=== PATIENT | male | born 1940 | race African-American/Black ===

== ENCOUNTER 2018-08-22 00:45 | Inpatient (IN) | payer MEDICARE, MEDICAID ==
[~2018-08-22] VITALS: Ht 175.3 cm; Wt 679.9 kg
[2018-08-22] VITALS (7 sets, daily range): BP systolic 104–119; BP diastolic 67–76
[~2018-08-22 00:45] MED LIST: AMLO10TA4 PO; ASPI-1159 PO; BRIM15DR2 OP; DICL75TA5 PO; DORZ10DR9 OP; HYDR-3513 PO; LATA2.5D2 EACHEYE; MOTRIN
[2018-08-22] MEDS ORDERED: IPRATROPIUM/ALBUTEROL 0.5-3(2.5)MG/3ML NEB INH PRN (01:45)
[2018-08-22] MEDS ORDERED: DOCUSATE SODIUM 100MG CAPSULE PO PRN (01:45)
[2018-08-22] MEDS ORDERED: GUAIFENESIN 200MG/10ML SUGAR FREE UDC PO PRN (01:45)
[2018-08-22] MEDS ORDERED: HYDROCODONE/ACETAMINOPHEN 5/325MG TABLET PO PRN (01:45)
[2018-08-22] MEDS ORDERED: ONDANSETRON HCL 4MG/2ML INJ IV PRN (01:45)
[2018-08-22] MEDS ORDERED: MAGNESIUM/ALUMINUM HYDROXIDE/SIMETHICONE 30ML UDC PO PRN (01:45)
[2018-08-22] MEDS ORDERED: ACETAMINOPHEN 325MG TABLET PO PRN (01:45)
[2018-08-22] MEDS ORDERED: CLONIDINE 0.1MG TABLET PO PRN (01:45)
[2018-08-22] MEDS: SODIUM CHLORIDE 0.9% 1,000 ML IV SCH ×2 (03:20→17:04)
[2018-08-22] MEDS ORDERED: CLON0.1T PO (06:09)
[2018-08-22] MEDS ORDERED: MOM PO (06:09)
[2018-08-22] MEDS ORDERED: MULT-1146 MT (06:09)
[2018-08-22] MEDS ORDERED: FAMO-135 PO (06:09)
[2018-08-22] MEDS ORDERED: TAMS-11 MT (06:09)
[2018-08-22] MEDS: ASPIRIN 81MG EC TABLET PO SCH (09:57)
[2018-08-22 12:00] LABS: BASOPHILS % 0.5 % (0.0-2.0); EOSINOPHILS % 2.8 % (0.0-5.0); HEMOGLOBIN. 12.7 g/dL (14.0-18.0); LYMPHOCYTES % 38.5 % (20.0-50.0); MEAN CORPUSCULAR HEMOGLOBIN 30.3 pg (28.0-32.0); MEAN CORPUSCULAR VOLUME 90.6 fL (80.0-94.0); NEUTROPHILS % 47.2 % (40.0-76.0); RED BLOOD CELL COUNT 4.19 mill/uL (4.7-6.1); RED CELL DISTRIBUTION WIDTH 14.6 % (11.6-14.6)
[2018-08-22 12:03] LABS: CHLORIDE 103 mEq/L (98-107)
[2018-08-22] MEDS: AMLODIPINE 10MG TABLET PO SCH (12:18)
[2018-08-22 12:46] LABS: MEAN PLATELET VOLUME 7.3 fl (7.4-10.4); PLATELET 195 x1000/uL (130-400)
[2018-08-22 14:57] LABS: CLARITY URINE CLOUDY (CLEAR); COLOR URINE YELLOW (YELLOW); KETONES URINE NEGATIVE (NEGATIVE); LEUKOCYTE ESTERASE URINE 3+ (NEGATIVE); NITRITE URINE POSITIVE (NEGATIVE); OCCULT BLOOD URINE TRACE (NEGATIVE); PROTEIN URINE NEGATIVE (NEGATIVE); SPECIFIC GRAVITY URINE 1.002 (1.005-1.030); UROBILINOGEN URINE 0.2 E.U./dL (0.2-1.0)
[2018-08-22] MEDS: ENOXAPARIN 40MG/0.4ML SYR SUBCUT SCH (17:03)
[2018-08-23] VITALS: BP 103/67
[2018-08-23 04:00] VITALS: BP 125/84
[2018-08-23 08:00] VITALS: BP 139/86
[2018-08-23] MEDS: AMLODIPINE 10MG TABLET PO SCH (09:00)
[2018-08-23] MEDS: ENOXAPARIN 40MG/0.4ML SYR SUBCUT SCH (09:00)
[2018-08-23] MEDS: ASPIRIN 81MG EC TABLET PO SCH (09:00)
[2018-08-23 12:00] VITALS: BP 105/61
[2018-08-23] MEDS: LEVOFLOXACIN 500MG PREMIX 100 ML IV SCH (14:03)
[2018-08-23 16:00] VITALS: BP 102/65
[2018-08-23] MEDS: SODIUM CHLORIDE 0.9% 1,000 ML IV SCH ×2 (17:43→17:56)
[2018-08-23 20:00] VITALS: BP 102/70
[2018-08-24] VITALS: BP 120/77
[2018-08-24 04:00] VITALS: BP 114/77
[2018-08-24] MEDS: SODIUM CHLORIDE 0.9% 1,000 ML IV SCH ×2 (06:03→20:23)
[2018-08-24 08:00] VITALS: BP 121/77
[2018-08-24] MEDS: AMLODIPINE 10MG TABLET PO SCH (08:29)
[2018-08-24] MEDS: ENOXAPARIN 40MG/0.4ML SYR SUBCUT SCH (08:29)
[2018-08-24] MEDS: ASPIRIN 81MG EC TABLET PO SCH (08:29)
[2018-08-24] MEDS: LEVOFLOXACIN 500MG PREMIX 100 ML IV SCH (10:18)
[2018-08-24 12:00] VITALS: BP 122/72
[2018-08-24 20:00] VITALS: BP 113/76
[2018-08-25] VITALS: BP 108/71
[2018-08-25 04:00] VITALS: BP 117/78
[2018-08-25 08:00] VITALS: BP 106/73
[2018-08-25] MEDS: AMLODIPINE 10MG TABLET PO SCH (08:31)
[2018-08-25] MEDS: SODIUM CHLORIDE 0.9% 1,000 ML IV SCH (08:33)
[2018-08-25] MEDS: ASPIRIN 81MG EC TABLET PO SCH (08:33)
[2018-08-25] MEDS: ENOXAPARIN 40MG/0.4ML SYR SUBCUT SCH (09:20)
[2018-08-25] MEDS: LEVOFLOXACIN 500MG PREMIX 100 ML IV SCH (10:12)
[2018-08-25 12:00] VITALS: BP 101/67
[2018-08-25 14:01] VITALS: BP 101/67
[2018-08-26] MEDS ORDERED: LEVOFLOXACIN 500MG TABLET PO SCH (11:00)
== END 2018-08-25 16:43 | DRG 689 ==
LOC: 6EST 00:45
PROVIDERS: ADMIT Hospitalist; ATTEND Hospitalist
DX: N39.0 Urinary tract infection, site not specified (principal); E43 Unspecified severe protein-calorie malnutrition; R62.7 Adult failure to thrive; H40.9 Unspecified glaucoma; F03.90 Unspecified dementia, unspecified severity, without behavioral disturbance, psychotic disturbance, mood disturbance, and anxiety; I10 Essential (primary) hypertension; Z82.49 Family history of ischemic heart disease and other diseases of the circulatory system; Z68.22 Body mass index [BMI] 22.0-22.9, adult
CPT/HCPCS: 36415; 71045; 87077; 87186; 93970; J1650; J1956; J7030